=== PATIENT | male | born 1950 | race Caucasian/White ===

== ENCOUNTER 2018-02-04 02:47 | Outpatient (CLI) | payer BC, SELFPAY ==
[2018-02-04 07:28] LABS: HCT 39.4 % (40.0-50.0); HGB 13.4 g/dL (13.5-17.5); Mean Corpuscular Hemoglobin 30.9 pg (27.0-33.0); Mean Corpuscular Volume 90.8 fL (80-95); Mean Platelet Volume 10.1 fL (8.0-11.0); Platelet Count 220 x1000/uL (130-400); RBC 4.34 m/cumm (4.50-6.00); RBC Distribution Width 12.4 % (11.8-14.1); White Blood Cell Count 6.55 k/cumm (4.4-10.8)
[2018-02-04 07:50] LABS: Hemoglobin A1C 6.5 % (4.5-6.2)
[2018-02-04 08:20] LABS: ALT 39 U/L (12-78); AST 27 U/L (15-37); Albumin 3.6 g/dL (3.4-5.0); Alkaline Phosphatase 58 U/L (46-116); Anion Gap 7.7 mmol/L (3-11); BUN 21 mg/dL (7-18); Bilirubin, Total 0.8 mg/dL (0.2-1.0); CO2 27.3 mmol/L (21.0-32.0); CREATININE 1.01 mg/dL (0.70-1.30); Calcium 8.6 mg/dL (8.5-10.1); Chloride 104 mmol/L (98-107); Cholesterol 104 mg/dL (50-200); Glucose 111 mg/dL (70-100); HDL Cholesterol 46 mg/dL (40-60); LDL CHOLESTEROL 47 mg/dL (<100); Potassium 4.5 mmol/L (3.5-5.1); Sodium 139 mmol/L (136-145); Total Protein 6.4 g/dL (6.4-8.2); Triglyceride 109 mg/dL (30-150)
[2018-02-05 10:15] LABS: PSA, Screening 0.7 ng/ml (0-4.5)
[2018-02-06 13:36] LABS: TSH (W/Ref FT4) 3.72 uIU/mL (0.358-3.74)
== END 2018-02-04 03:07 ==
PROVIDERS: PCP Family Medicine; Visit Provider Family Medicine
DX: E11.9 Type 2 diabetes mellitus without complications (principal); I10 Essential (primary) hypertension; Z00.00 Encounter for general adult medical examination without abnormal findings; E03.9 Hypothyroidism, unspecified
CPT/HCPCS: 36415; 80053; 80061; 83721; 84153; 85027; 83036; 84443

== ENCOUNTER 2018-02-06 13:27 | Outpatient (REF) | payer BC, SELFPAY ==
[2018-02-06 15:31] LABS: COMMENT (LAB VIEW ONLY) 189.25 mg/dL
== END 2018-02-06 13:47 ==
LOC: NCHCN 13:27
PROVIDERS: PCP Family Medicine; Visit Provider Family Medicine
DX: E11.9 Type 2 diabetes mellitus without complications (principal)
CPT/HCPCS: 82043; 82570

== ENCOUNTER 2018-06-10 07:21 | Outpatient (CLI) | payer BC, SELFPAY ==
[2018-06-10 08:23] LABS: Abs Immature Grans 0.04 k/cumm (0.0-0.09); Absolute Basophil Count 0.08 k/cumm (0.0-0.2); Absolute Lymphocyte Count 2.19 k/cumm (1.2-3.4); Absolute Monocyte Count 0.55 k/cumm (0.11-0.7); Basophils % 1.2; Eosinophils % 4.5; HCT 38.5 % (40.0-50.0); HGB 12.4 g/dL (13.5-17.5); Immature Grans % 0.6; Lymphocytes % 32.9; Mean Corp. HGB Concentration 32.2 g/dL (32.0-36.0); Mean Corpuscular Hemoglobin 29.5 pg (27.0-33.0); Mean Corpuscular Volume 91.7 fL (80-95); Mean Platelet Volume 10.3 fL (8.0-11.0); Monocytes % 8.3; Neutrophils % 52.5; Platelet Count 260 x1000/uL (130-400); RBC Distribution Width 12.7 % (11.8-14.1); White Blood Cell Count 6.66 k/cumm (4.4-10.8)
[2018-06-10 08:28] LABS: Hemoglobin A1C 6.8 % (4.5-6.2)
[2018-06-10 09:09] LABS: ALT 29 U/L (12-78); AST 21 U/L (15-37); Albumin 3.5 g/dL (3.4-5.0); Alkaline Phosphatase 59 U/L (46-116); Anion Gap 10.3 mmol/L (3-11); BUN 24 mg/dL (7-18); Bilirubin, Total 0.8 mg/dL (0.2-1.0); CO2 26.7 mmol/L (21.0-32.0); CREATININE 1.16 mg/dL (0.70-1.30); Calcium 9.6 mg/dL (8.5-10.1); Chloride 104 mmol/L (98-107); Glucose 101 mg/dL (70-100); Potassium 4.3 mmol/L (3.5-5.1); Sodium 141 mmol/L (136-145); TSH (W/Ref FT4) 4.08 uIU/mL (0.358-3.74); Total Protein 6.6 g/dL (6.4-8.2)
[2018-06-10 09:26] LABS: FREE T4 1.08 ng/dL (0.76-1.46)
[2018-06-10 10:14] LABS: ESR 14 MM/HR (1-20)
[2018-06-10 14:15] LABS: C-Reactive Protein 0.17 mg/dL (0.0-0.3)
== END 2018-06-10 07:41 ==
PROVIDERS: PCP Family Medicine; Visit Provider Family Medicine
DX: M25.562 Pain in left knee (principal); M25.462 Effusion, left knee; Z96.652 Presence of left artificial knee joint; I10 Essential (primary) hypertension; E11.9 Type 2 diabetes mellitus without complications; E03.9 Hypothyroidism, unspecified
CPT/HCPCS: 36415; 80053; 85652; 83036; 84439; 84443; 85025; 86140

== ENCOUNTER 2018-06-25 13:25 | Outpatient (REF) | payer BC, SELFPAY ==
[2018-06-25 15:59] LABS: Iron 103 ug/dL (50-175); Total Iron Binding Capacity 315 ug/dL (250-450); Transferrin Sat 33 % (20-55)
[2018-06-25 16:28] LABS: Ferritin 331 ng/mL (8-388); Vitamin B12 573 pg/mL (193-986)
[2018-06-25 16:40] LABS: Folate > 20.0 ng/mL (8.6-20.0)
== END 2018-06-25 13:45 ==
LOC: NCHCN 13:25
PROVIDERS: PCP Family Medicine; Visit Provider Family Medicine
DX: D64.9 Anemia, unspecified (principal)
CPT/HCPCS: 82607; 82728; 82746; 83540; 83550

== ENCOUNTER 2019-02-10 17:30 | Outpatient (REF) | payer BC, SELFPAY ==
[2019-02-10 19:32] LABS: Abs Immature Grans 0.02 k/cumm (0.0-0.09); Absolute Basophil Count 0.03 k/cumm (0.0-0.2); Absolute Eosinophil Count 0.03 k/cumm (0.0-0.7); Absolute Lymphocyte Count 0.53 k/cumm (1.2-3.4); Absolute Monocyte Count 0.45 k/cumm (0.11-0.7); Absolute Neutrophil Count 3.68 k/cumm (1.2-6.7); Basophils % 0.6; Eosinophils % 0.6; HGB 13.3 g/dL (13.5-17.5); Immature Grans % 0.4; Lymphocytes % 11.2; Mean Corp. HGB Concentration 34.1 g/dL (32.0-36.0); Mean Corpuscular Hemoglobin 30.4 pg (27.0-33.0); Mean Platelet Volume 10.7 fL (8.0-11.0); Monocytes % 9.5; Neutrophils % 77.7; Platelet Count 199 x1000/uL (130-400); RBC 4.38 m/cumm (4.50-6.00); RBC Distribution Width 12.3 % (11.8-14.1); White Blood Cell Count 4.74 k/cumm (4.4-10.8)
[2019-02-10 19:34] LABS: Anion Gap 14.3 mmol/L (3-11); BUN 30 mg/dL (7-18); CO2 22.7 mmol/L (21.0-32.0); CREATININE 1.53 mg/dL (0.70-1.30); Calcium 8.6 mg/dL (8.5-10.1); Chloride 103 mmol/L (98-107); Estimated GFR 45.77 (mL/min/1.73m2); Glucose 190 mg/dL (70-100); Sodium 140 mmol/L (136-145)
[2019-02-10 19:43] LABS: Hemoglobin A1C 6.5 % (4.5-6.2)
== END 2019-02-10 17:50 ==
LOC: NCHCN 17:30
PROVIDERS: PCP Family Medicine; Visit Provider Family Medicine
DX: R50.9 Fever, unspecified (principal); I10 Essential (primary) hypertension; E78.5 Hyperlipidemia, unspecified; E11.9 Type 2 diabetes mellitus without complications
CPT/HCPCS: 80048; 83036; 85025

== ENCOUNTER 2019-02-11 01:27 | Outpatient (CLI) | payer BC, SELFPAY ==
--- NOTE | 2019-02-11 08:15 | DI.RAD_ITS ---
EXAM: XR CHEST 2V PA LATERAL INDICATION: FEVER, R50.9. COMPARISON: No exams were available for comparison TECHNIQUE: 2D digital imaging was performed. FINDINGS: Heart is not enlarged. Lungs are predominantly clear except for question of focal increased radioden sity in the lingula which could represent patchy areas of consolidation. No pleural effusion seen. Mediastinal contours within normal limits. IMPRESSION: Question lingular pneumonia. Follow-up chest films suggested following treatment to rule out underly ing process including neoplastic disease
== END 2019-02-11 01:47 ==
PROVIDERS: PCP Family Medicine; Visit Provider Family Medicine
DX: R50.9 Fever, unspecified (principal); J18.1 Lobar pneumonia, unspecified organism
CPT/HCPCS: 71046

== ENCOUNTER 2019-03-04 01:30 | Outpatient (CLI) | payer BC, SELFPAY ==
--- NOTE | 2019-03-04 15:02 | DI.CT_ITS ---
EXAM: CT LOWER EXTREMITY LT WO CLINICAL HISTORY: CHRONIC KNEE PAIN, LT, LT KNEE PAIN/EFFUSION S/P KNEE REPLACEMENT 04/19/16 TECHNIQUE: Images were performed from the distal femoral diaphysis through the proximal tibial and f ibular diaphyses. COMPARISON: Knee L from 06/05/2018 FINDINGS: A total knee prosthesis is noted which creates artifact particularly at the level of the femoral com ponent. A joint effusion is seen with marked synovial thickening. There are calcifications in the thi ckened synovium but no visible loose bodies. No abnormal bony lucencies are seen around the prosthesi s. There are 2 adjacent circumscribed bony densities seen beneath the proximal tibial fibular joint w hich shows some degenerative change and spurring. IMPRESSION: Joint effusion with marked synovial thickening. No abnormal periprostatic lucencies are seen.
== END 2019-03-04 01:50 ==
PROVIDERS: PCP Family Medicine; Visit Provider Orthopaedic Surgery Adult Reconstructive Orthopaedic Surgery
DX: M25.562 Pain in left knee (principal); M25.462 Effusion, left knee; Z96.652 Presence of left artificial knee joint
CPT/HCPCS: 73700

== ENCOUNTER 2019-03-12 04:12 | Outpatient (CLI) | payer BC, SELFPAY ==
--- NOTE | 2019-03-12 17:27 | DI.RAD_ITS ---
EXAM: XR CHEST 2V PA AND LATERAL INDICATION: ABNORMAL CXR, R91.8. COMPARISON: XR CHEST 2V PA AND LATERAL from 02/11/2019 TECHNIQUE: 2D digital imaging was performed. FINDINGS: There is a faint opacity seen in the left lower lung field laterally, which appears unchanged. No in filtrate is identified. Heart size is normal. The right lung appears clear. There are mild degener ative changes in the thoracic spine. IMPRESSION: Opacity of the left costophrenic angle may be pleural based. A CT is recommended for further evaluati on.
== END 2019-03-12 04:32 ==
PROVIDERS: PCP Family Medicine; Visit Provider Family Medicine
DX: R91.8 Other nonspecific abnormal finding of lung field (principal); J98.4 Other disorders of lung
CPT/HCPCS: 71046

== ENCOUNTER 2019-07-15 09:47 | Outpatient (CLI) | payer BC, SELFPAY ==
--- NOTE | 2019-07-15 10:04 | DI.RAD_ITS ---
EXAM: XR CHEST 2V PA LATERAL CLINICAL HISTORY: ABNL CXR 03/12/19, R91.8, F/U LINGULAR INFILTRATE TO CLEAR TECHNIQUE: 2D digital imaging was performed. COMPARISON: XR CHEST 2V PA LATERAL from 02/11/2019 XR CHEST 2V PA LATERAL from 03/12/2019 FINDINGS: MEDIASTINUM: Normal. HEART: Normal. PULMONARY VASCULATURE: Normal. LUNGS: Clear. PLEURAL SPACE: No pleural effusion or pneumothorax. BONE:Normal. OTHER FINDINGS:Normal. IMPRESSION: No evidence of lingular infiltrate.. DATA REPOSITORY: RADIATION DOSE DELIVERED:
== END 2019-07-15 10:07 ==
PROVIDERS: PCP Family Medicine; Visit Provider Family Medicine
DX: R91.8 Other nonspecific abnormal finding of lung field (principal)
CPT/HCPCS: 71046

== ENCOUNTER 2019-08-20 19:30 | Outpatient (REF) | payer BC, SELFPAY ==
[2019-08-23 17:14] LABS: COVID-19 RT-PCR Result Negative (Negative)
== END 2019-08-20 19:50 ==
LOC: NCHCN 19:30
PROVIDERS: PCP Family Medicine; Visit Provider Physician Assistant
DX: R09.81 Nasal congestion (principal); Z11.59 Encounter for screening for other viral diseases
CPT/HCPCS: U0003

== ENCOUNTER 2019-09-10 11:30 | Outpatient (CLI) | payer BC, SELFPAY ==
--- NOTE | 2019-09-10 | DI.CT_ITS ---
EXAM: CT LOWER EXTREMITY LT WO TECHNIQUE: Imaging Protocol: Axial computed tomography images with coronal and sagittal reformatted images were created and reviewed CONTRAST MATERIAL: Noncontrast CR Bilateral Standing Knees from 02/06/2018 CR Knee L from 06/05/2018 NM Bone Scan from 07/14/[address] LOWER EXTREMITY LT WO from 03/04/2019 FINDINGS: A total left knee prosthesis is again noted. There is artifact surrounding the prosthesis, particul fernando the femoral component. There is a smoothly marginated rounded lucency seen in the medial femora l condyle posteriorly, adjacent to the prosthesis. There is some cortical breakthrough. The cystic area measures 15 millimeters in diameter. It appears unchanged when compared with the previous CT. No new areas of lucency are seen. There is stable appearance of synovial thickening and joint effusion with some synovial calcification . Bony densities are again noted adjacent to the posterior proximal tibial fibular joint. IMPRESSION: Stable cystic area in the posterior aspect of the medial femoral condyle, just above the prosthesis. Stable joint effusion and synovial thickening. RADIATION DOSE DELIVERED: Total DLP DATA REPOSITORY: All CT scans at this facility are submitted to the National Radiology Data Registry (NRDR) Dose Index Registry (DIR) with the [employer] (ACR). RADIATION OPTIMIZATION: All CT scans at this facility use at least one of these dose optimization te chniques: automated exposure control; mA and/or kV adjustment per patient size (includes targeted exa ms where dose is matched to clinical indication); or iterative reconstruction.
== END 2019-09-10 11:50 ==
PROVIDERS: PCP Family Medicine; Visit Provider Orthopaedic Surgery Adult Reconstructive Orthopaedic Surgery
DX: Z96.652 Presence of left artificial knee joint (principal); M25.462 Effusion, left knee; M67.262 Synovial hypertrophy, not elsewhere classified, left lower leg
CPT/HCPCS: 73700

== ENCOUNTER 2020-02-03 21:23 | Outpatient (REF) | payer BC, SELFPAY ==
[2020-02-03 18:28] LABS: HCT 39.3 % (40.0-50.0); MCH 30.3 pg (27.0-33.0); MCHC 33.1 % (32.0-36.0); MCV 91.6 fL (80-95); MPV 10.9 fL (8.0-11.0); Platelet Count 272 10^3/uL (130-400); RBC 4.29 10^6/uL (4.36-5.78); RDW 12.2 % (11.8-14.1); RDW-SD 40.4 fL; WBC 8.83 10^3/uL (4.4-10.8)
[2020-02-03 19:12] LABS: Hemoglobin A1C 6.5 % (<5.7)
[2020-02-03 19:13] LABS: Anion Gap 10.6 mmol/L (3-11); BUN 39 mg/dL (7-18); CO2 23.4 mmol/L (21.0-32.0); CREATININE 1.57 mg/dL (0.70-1.30); Calcium 8.8 mg/dL (8.5-10.1); Calculated LDL 34 mg/dL (<100); Chloride 103 mmol/L (98-107); Cholesterol 121 mg/dL (<200); Estimated GFR 44.29 (mL/min/1.73m2); Glucose 126 mg/dL (74-106); HDL Cholesterol 40 mg/dL (40-60); Potassium 4.7 mmol/L (3.5-5.1); Sodium 137 mmol/L (136-145); Triglyceride 237 mg/dL (<150)
[2020-02-04 18:08] LABS: PSA, Screening 0.9 ng/mL (0.0-4.5)
== END 2020-02-03 21:43 ==
LOC: NCHCN 21:23
PROVIDERS: PCP Family Medicine; Visit Provider Family Medicine
DX: I10 Essential (primary) hypertension (principal); E11.9 Type 2 diabetes mellitus without complications; E78.5 Hyperlipidemia, unspecified; Z00.00 Encounter for general adult medical examination without abnormal findings; Z12.5 Encounter for screening for malignant neoplasm of prostate
CPT/HCPCS: 80048; 80061; 84153; 85027; 83036

== ENCOUNTER 2020-02-08 10:45 | Outpatient (REF) | payer BC, SELFPAY ==
[2020-02-08 18:31] LABS: Bilirubin Negative (Negative); Blood Negative (Negative); Clarity Clear (Clear); Glucose Negative (Negative); Ketones Trace mg/dL (Negative); Leukocyte Esterase Negative (Negative); Nitrite Negative (Negative); Specific Gravity 1.025 (1.005-1.025); Urobilinogen 0.2 EU/dL (Up TO 0.2); pH 5.5 (5-8)
[2020-02-08 19:04] LABS: COMMENT (LAB VIEW ONLY) 182.82 mg/dL
== END 2020-02-08 11:05 ==
LOC: NCHCN 10:45
PROVIDERS: PCP Family Medicine; Visit Provider Family Medicine
DX: E11.9 Type 2 diabetes mellitus without complications (principal); N18.30 Chronic kidney disease, stage 3 unspecified
CPT/HCPCS: 81003; 82043; 82570

== ENCOUNTER 2020-02-16 08:57 | Outpatient (CLI) | payer BC, SELFPAY ==
--- NOTE | 2020-02-16 | DI.US_ITS ---
EXAM: US RENAL CLINICAL HISTORY: KIDNEY DISEASE, CHRONIC STAGE III N18.3. TECHNIQUE: Reddy scale, color and spectral Doppler were used. COMPARISON: No exams were available for comparison FINDINGS: Renal size in cm: Right: 10.6. Left: 10.7. Echogenicity: Normal. Hydronephrosis: No. Cyst or mass: No. Nephrolithiasis: Echogenic foci seen in each kidney. These may represent nonobstructing stones. The largest measures 0.7 cm and is in the midpole of the left kidney. Other findings: Symmetric renal cortical thickness. Bladder:Normal. Ureteral jets: Right: Visualized and unremarkable. Left: Visualized and unremarkable. Prevoid vol:142 cc Postvoid vol:31 cc Prostate: Not visualized. Renal color flow: Symmetric and within normal limits. IMPRESSION: 1. Symmetric renal cortical thickness appears within normal limits. 2. Bilateral echogenic foci in the kidneys which may represent nonobstructing stones. DATA REPOSITORY:
== END 2020-02-16 09:17 ==
PROVIDERS: PCP Family Medicine; Visit Provider Family Medicine
DX: N18.30 Chronic kidney disease, stage 3 unspecified (principal)
CPT/HCPCS: 76770

== ENCOUNTER 2020-04-10 09:12 | Outpatient (REF) | payer BC, SELFPAY ==
[2020-04-10 19:33] LABS: Anion Gap 10.8 mmol/L (3-11); BUN 23 mg/dL (7-18); CO2 21.2 mmol/L (21.0-32.0); CREATININE 1.28 mg/dL (0.70-1.30); Calcium 8.9 mg/dL (8.5-10.1); Chloride 104 mmol/L (98-107); Estimated GFR 56.06 (mL/min/1.73m2); Glucose 148 mg/dL (74-106); Potassium 4.4 mmol/L (3.5-5.1); Sodium 136 mmol/L (136-145); TSH (W/Ref FT4) 3.74 uIU/mL (0.36-3.74)
[2020-04-10 20:53] LABS: Hemoglobin A1C 6.6 % (<5.7)
== END 2020-04-10 09:32 ==
LOC: NCHCN 09:12
PROVIDERS: PCP Family Medicine; Visit Provider Family Medicine
DX: E03.9 Hypothyroidism, unspecified (principal); E11.9 Type 2 diabetes mellitus without complications; N18.31 Chronic kidney disease, stage 3a
CPT/HCPCS: 80048; 83036; 84443

== ENCOUNTER 2020-05-04 09:47 | Outpatient (REF) | payer BC, SELFPAY ==
[2020-05-08 10:55] LABS: Testosterone, Free 12.8 ng/dL (3.47-13.0); Testosterone, Total 365 ng/dL (240-950)
== END 2020-05-04 10:07 ==
LOC: NCHCN 09:47
PROVIDERS: PCP Family Medicine; Visit Provider Physician Assistant
DX: R53.83 Other fatigue (principal)
CPT/HCPCS: 84402; 84403

== ENCOUNTER 2021-01-03 12:15 | Outpatient (REF) | payer MEDICARE, BC, SELFPAY ==
[2021-01-05 12:19] LABS: Lyme Ab w Rflx to Lyme Confirm Positive (Negative)
[2021-01-05 14:08] LABS: Lyme IgG Ab Positive (Negative); Lyme IgM Ab Positive (Negative)
[2021-01-05 21:39] LABS: Anaplasma phagocytophilum Negative (Negative); B. miyamotoi PCR Negative (Negative); Babesia divergens/MO-1 Negative (Negative); Babesia duncani Negative (Negative); Babesia microti Negative (Negative); Ehrlichia chaffeensis Negative (Negative); Ehrlichia ewingii/canis Negative (Negative); Ehrlichia muris eauclairensis Negative (Negative)
== END 2021-01-03 12:16 | disposition home or self-care (01) ==
LOC: LBN 12:15
PROVIDERS: PCP Family Medicine; Visit Provider Family Medicine
DX: R50.9 Fever, unspecified (principal); R53.83 Other fatigue
CPT/HCPCS: 86617; 87798; 86618

== ENCOUNTER 2021-08-24 12:53 | Outpatient (REF) | payer MEDICARE, BC, SELFPAY ==
[2021-08-24 14:32] LABS: HCT 43.3 % (40.0-50.0); HGB 14.1 g/dL (13.5-17.5); MCH 29.6 pg (27.0-33.0); MCHC 32.6 % (32.0-36.0); MCV 90.8 fL (80-95); MPV 10.7 fL (8.0-11.0); Platelet Count 268 10^3/uL (130-400); RBC 4.77 10^6/uL (4.36-5.78); RDW 12.3 % (11.8-14.1); WBC 7.37 10^3/uL (4.4-10.8)
[2021-08-24 14:51] LABS: ALT 34 U/L (16-63); AST 22 U/L (15-37); Alkaline Phosphatase 69 U/L (46-116); Anion Gap 10.1 mmol/L (3-11); BUN 19 mg/dL (7-18); Bilirubin, Total 1.1 mg/dL (0.2-1.0); CO2 24.9 mmol/L (21.0-32.0); CREATININE 1.1 mg/dL (0.70-1.30); Calcium 9.5 mg/dL (8.5-10.1); Chloride 102 mmol/L (98-107); Glucose 145 mg/dL (74-106); Potassium 4.6 mmol/L (3.5-5.1); Sodium 137 mmol/L (136-145)
[2021-08-24 15:03] LABS: Hemoglobin A1C 6.4 % (<5.7)
[2021-08-24 15:27] LABS: COMMENT (LAB VIEW ONLY) 99.78 mg/dL
[2021-08-27 09:28] LABS: PSA, Screening 0.7 ng/mL (<=4.5)
== END 2021-08-24 12:54 | disposition home or self-care (01) ==
LOC: NCHCN 12:53
PROVIDERS: PCP Family Medicine; Visit Provider Family Medicine
DX: E11.9 Type 2 diabetes mellitus without complications (principal); Z12.5 Encounter for screening for malignant neoplasm of prostate; N18.30 Chronic kidney disease, stage 3 unspecified; I10 Essential (primary) hypertension
CPT/HCPCS: 80053; 84153; 85027; 82043; 82570; 83036

== ENCOUNTER → 2021-10-04 01:13 | Outpatient (CLI) | payer MEDICARE, BC, SELFPAY ==
--- NOTE | 2021-10-04 08:00 | DI.US_ITS ---
Exam(s) US AAA SCREENING EXAM: US AAA SCREENING CLINICAL HISTORY: TOBACCO USE, QUIT, Z87.891,screening for aaa COMPARISON: US US RENAL from 02/16/2020 FINDINGS: There is no evidence of abdominal aortic aneurysm. The maximum measured external diameter of the abd ominal aorta is 2.3 cm and the abdominal aorta tapers normally. The partially visualized common ayana c arteries exhibit upper normal diameters. IMPRESSION: No evidence of abdominal aortic aneurysm. DATA REPOSITORY:
== END ==
PROVIDERS: PCP Family Medicine; Visit Provider Family Medicine
DX: Z87.891 Personal history of nicotine dependence (principal); Z13.6 Encounter for screening for cardiovascular disorders
CPT/HCPCS: 76706

== ENCOUNTER 2022-02-19 15:21 | Outpatient (REF) | payer MEDICARE, BC, SELFPAY ==
[2022-02-19 19:18] LABS: Hemoglobin A1C 6.3 % (<5.7)
[2022-02-19 19:27] LABS: Anion Gap 7.1 mmol/L (3-11); BUN 20 mg/dL (7-18); CO2 28.9 mmol/L (21.0-32.0); CREATININE 1.1 mg/dL (0.70-1.30); Calcium 9.3 mg/dL (8.5-10.1); Chloride 103 mmol/L (98-107); Estimated GFR 72.67 (mL/min/1.73m2); Glucose 108 mg/dL (74-106); Potassium 3.9 mmol/L (3.5-5.1); Sodium 139 mmol/L (136-145); TSH (W/Ref FT4) 2.35 uIU/mL (0.36-3.74)
[2022-02-19 20:43] LABS: COMMENT (LAB VIEW ONLY) 37.86 mg/dL; Microalb ug/mg Crea 15.1 ug/mg Cr
== END 2022-02-19 15:22 | disposition home or self-care (01) ==
LOC: NCHCN 15:21
PROVIDERS: PCP Family Medicine; Visit Provider Family Medicine
DX: E03.9 Hypothyroidism, unspecified (principal); E11.9 Type 2 diabetes mellitus without complications; N18.30 Chronic kidney disease, stage 3 unspecified
CPT/HCPCS: 80048; 82043; 82570; 83036; 84443

== ENCOUNTER 2022-03-22 15:58 | Outpatient (CLI) | payer MEDICARE, BC, SELFPAY ==
--- NOTE | 2022-03-22 | DI.RAD_ITS ---
Exam(s) XR CLAVICLE RT EXAM: XR CLAVICLE RT CLINICAL HISTORY: CLAVICLE PAIN--M89.8x8. TECHNIQUE: 2D digital imaging was performed. COMPARISON: CR XR SHOULDER RT COMPLETE 2+V from 03/22/2022 FINDINGS: Two views No evidence of clavicle fracture. No dislocation of the AC joint. Some degenerative irregularity on the superior surface of the acromion noted. Of a calcific density measuring 4 x 3 millimeters noted lateral to the greater tuberosity of the humerus indicative of calcific rotator cuff tendinitis. IMPRESSION: No clavicle fracture. Other findings as above. DATA REPOSITORY: RADIATION DOSE DELIVERED:
--- NOTE | 2022-03-22 | DI.RAD_ITS ---
Exam(s) XR SHOULDER RT COMPLETE 2+V EXAM: XR SHOULDER RT COMPLETE 2+V CLINICAL HISTORY: PAIN IN RIGHT SHOULDER--M25.511. TECHNIQUE: 2D digital imaging was performed. COMPARISON: No exams were available for comparison FINDINGS: Five views: No evidence of acute fracture or dislocation. 4 x 3 millimeter calcific densities noted adjacent to the greater tuberosity consistent with calcific rotator cuff tendinitis. There also advanced degener ative changes in the glenohumeral joint including joint space narrowing and obando osteophyte on the i nferior articular surface of the humeral head. Clavicle intact. No osseous lesions. 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 Calcific rotator cuff tendinitis. Wet read performed. DATA REPOSITORY: RADIATION DOSE DELIVERED:
== END 2022-03-22 16:18 ==
LOC: DI 15:59
PROVIDERS: PCP Family Medicine; Visit Provider Physician Assistant Medical
DX: M19.011 Primary osteoarthritis, right shoulder (principal); M75.31 Calcific tendinitis of right shoulder
CPT/HCPCS: 73000; 73030

== ENCOUNTER → 2022-04-03 11:02 | Outpatient (BNVA) | payer MEDICARE, BC, SELFPAY | PROVIDERS: PCP Family Medicine; Referring Provider Family Medicine; Visit Provider Student in an Organized Health Care Education/Training Program | DX: M19.011 Primary osteoarthritis, right shoulder (principal); M75.31 Calcific tendinitis of right shoulder | CPT/HCPCS: 20610; 99203; J1030 ==

== ENCOUNTER → 2022-04-22 13:32 | Outpatient (CLI) | payer MEDICARE, BC, SELFPAY ==
--- NOTE | 2022-04-22 | DI.CT_ITS ---
Exam(s) CT ABDOMEN PELVIS W EXAM: CT ABDOMEN PELVIS W CLINICAL HISTORY: LLQ ABD PAIN, R10.32, LUQ ABD PAIN, R10.12,S/P BLUNT FORCE TRAUMA 2 WKS AGO. TECHNIQUE: Imaging Protocol: Axial computed tomography images with coronal and sagittal reformatted images were created and reviewed CONTRAST MATERIAL: Intravenous: Omnipaque 350 Contrast volume:100 ml Oral: yes / COMPARISON: CT CT KNEE WO CONTRAST LEFT (GENERIC) from 07/22/2018 CR XR CLAVICLE RT from 03/22/2022 CR XR SHOULDER RT COMPLETE 2+V from 03/22/2022 FINDINGS: ABDOMEN: Lung Bases: Left basilar atelectasis. Liver: Normal density. No measurable mass. Gallbladder and biliary tract: No radiodense calculus or dilation. Pancreas: Normal density, no abnormal calcifications or inflammatory process. Spleen: Normal. Kidneys: Normal size, contour and axis. 2 millimeter stone at the left ureterovesical junction causes mild left hydronephrosis. No additional stones are seen. There is mild delay in the left nephrogra m. A small left renal cyst is present. Adrenal glands: No masses seen. Abdominal Aorta: Abdominal portion non-dilated. Mild atherosclerotic changes. PELVIS: Bladder: Bladder nearly empty and not well evaluated. Question of diffuse wall thickening..No focal mass. Bowel: Prominent diverticulosis sigmoid. No evidence of diverticulitis. Increased stool right-sided colon. No obstruction or bowel wall thickening. Appendix normal. Peritoneal cavity: No ascites, collection or mesenteric inflammatory response. Bones: Degenerative changes lumbar spine. Reproductive organs: Prostate mildly enlarged. Lymph nodes: Unremarkable. Soft tissues: Small bilateral fatty containing inguinal hernias. Impression: 2 millimeter stone at the left ureteral vesicle junction causing mild left hydronephrosis. Question of bladder wall thickening versus nondistention. RADIATION DOSE DELIVERED: 1,393.86mGy.cm Total DLP DATA REPOSITORY: All CT scans at this facility are submitted to the National Radiology Data Registry (NRDR) Dose Index Registry (DIR) with the [employer] (ACR). RADIATION OPTIMIZATION: All CT scans at this facility use at least one of these dose optimization te chniques: automated exposure control; mA and/or kV adjustment per patient size (includes targeted exa ms where dose is matched to clinical indication); or iterative reconstruction.
[2022-04-22] MEDS: Barium Sulfate 2% W/V-Berry Smoothie 450 ML BTL PO ×2 (13:07→13:08)
[2022-04-22] MEDS: Omnipaque 350 MG/ML 500 ML BTL-Imaging package IJ (13:08)
[2022-04-22] MEDS: Normal Saline - Diluent 50 ML VIAL IJ (13:08)
== END ==
PROVIDERS: PCP Family Medicine; Visit Provider Nurse Practitioner Family
DX: R10.32 Left lower quadrant pain (principal); R10.12 Left upper quadrant pain; J98.11 Atelectasis; N20.1 Calculus of ureter; N13.30 Unspecified hydronephrosis; N28.1 Cyst of kidney, acquired; N40.0 Benign prostatic hyperplasia without lower urinary tract symptoms; N32.89 Other specified disorders of bladder
CPT/HCPCS: 74177

== ENCOUNTER 2022-04-22 14:25 | Outpatient (REF) | payer MEDICARE, BC, SELFPAY ==
[2022-04-22 11:30] LABS: Abs Immature Grans 0.04 10^3/uL (0.0-0.06); Absolute Basophil Count 0.07 10^3/uL (0.0-0.2); Absolute Eosinophil Count 0.12 10^3/uL (0.0-0.7); Absolute Lymphocyte Count 1.67 10^3/uL (1.2-3.4); Absolute Monocyte Count 0.74 10^3/uL (0.1-0.8); Basophils % 0.8; Eosinophils % 1.3; HCT 39.6 % (40.0-50.0); HGB 13.3 g/dL (13.5-17.5); Immature Grans % 0.4; Lymphocytes % 18.1; MCHC 33.6 % (32.0-36.0); MCV 89 fL (80-95); MPV 10.2 fL (8.0-11.0); Neutrophils % 71.4; Platelet Count 228 10^3/uL (130-400); RBC 4.43 10^6/uL (4.36-5.78); RDW 12.4 % (11.8-14.1); RDW-SD 40.7 fL; WBC 9.24 10^3/uL (4.4-10.8)
[2022-04-22 11:55] LABS: ALT 32 U/L (16-63); AST 20 U/L (15-37); Albumin 3.9 g/dL (3.4-5.0); Alkaline Phosphatase 63 U/L (46-116); Anion Gap 9.8 mmol/L (3-11); BUN 27 mg/dL (7-18); Bilirubin, Total 1.4 mg/dL (0.2-1.0); CO2 25.2 mmol/L (21.0-32.0); CREATININE 1.6 mg/dL (0.70-1.30); Calcium 9.2 mg/dL (8.5-10.1); Chloride 101 mmol/L (98-107); Estimated GFR 46.35 (mL/min/1.73m2); Glucose 185 mg/dL (74-106); Potassium 4.2 mmol/L (3.5-5.1); Sodium 136 mmol/L (136-145)
== END 2022-04-22 14:26 | disposition home or self-care (01) ==
LOC: LBN 14:25
PROVIDERS: PCP Family Medicine; Visit Provider Nurse Practitioner Family
DX: R10.32 Left lower quadrant pain (principal); R10.12 Left upper quadrant pain
CPT/HCPCS: 80053; 85025

== ENCOUNTER 2022-12-06 15:53 | Outpatient (REF) | payer MEDICARE, BC, SELFPAY ==
[2022-12-06 16:39] LABS: HCT 41.5 % (40.0-50.0); HGB 13.8 g/dL (13.5-17.5); MCH 29.5 pg (27.0-33.0); MCHC 33.3 % (32.0-36.0); MCV 89 fL (80-95); MPV 10.7 fL (8.0-11.0); Platelet Count 247 10^3/uL (130-400); RBC 4.68 10^6/uL (4.36-5.78); RDW 12.7 % (11.8-14.1); RDW-SD 41.3 fL; WBC 9.14 10^3/uL (4.4-10.8)
[2022-12-06 17:09] LABS: Hemoglobin A1C 6.6 % (<5.7)
[2022-12-06 17:23] LABS: ALT 28 U/L (16-63); AST 19 U/L (15-37); Albumin 4.1 g/dL (3.4-5.0); Alkaline Phosphatase 66 U/L (46-116); BUN 22 mg/dL (7-18); Bilirubin, Total 0.8 mg/dL (0.2-1.0); Calcium 9.5 mg/dL (8.5-10.1); Calculated LDL 9 mg/dL (<100); Chloride 103 mmol/L (98-107); Cholesterol 74 mg/dL (<200); Estimated GFR 80.97 (mL/min/1.73m2); Glucose 112 mg/dL (74-106); HDL Cholesterol 40 mg/dL (40-60); Potassium 4.6 mmol/L (3.5-5.1); Sodium 140 mmol/L (136-145); Total Protein 7.1 g/dL (6.4-8.2); Triglyceride 127 mg/dL (<150)
[2022-12-09 09:42] LABS: PSA, Screening 0.6 ng/mL (<=6.5)
== END 2022-12-06 15:54 | disposition home or self-care (01) ==
LOC: NCHCN 15:53
PROVIDERS: PCP Family Medicine; Visit Provider Family Medicine
DX: E78.5 Hyperlipidemia, unspecified (principal); E11.9 Type 2 diabetes mellitus without complications; E03.9 Hypothyroidism, unspecified; Z12.5 Encounter for screening for malignant neoplasm of prostate; Z79.899 Other long term (current) drug therapy; N40.0 Benign prostatic hyperplasia without lower urinary tract symptoms
CPT/HCPCS: 80053; 80061; 84153; 85027; 83036; 84443

== ENCOUNTER 2023-07-11 12:00 | Outpatient (REF) | payer MEDICARE, BC, SELFPAY ==
[2023-07-11 16:02] LABS: Hemoglobin A1C 6.2 % (<5.7)
[2023-07-11 16:31] LABS: COMMENT (LAB VIEW ONLY) 107.91 mg/dL; Microalb ug/mg Crea 7.8 ug/mg Cr
== END 2023-07-11 12:01 | disposition home or self-care (01) ==
LOC: NCHCN 12:00
PROVIDERS: PCP Family Medicine; Referring Provider Family Medicine; Visit Provider Family Medicine
DX: E11.9 Type 2 diabetes mellitus without complications (principal)
CPT/HCPCS: 82043; 82570; 83036

== ENCOUNTER 2023-11-17 19:12 | Outpatient (REF) | payer MEDICARE, BC, SELFPAY ==
[2023-11-17 19:33] LABS: HCT 38.8 % (40.0-50.0); HGB 12.9 g/dL (13.5-17.5); MCH 30.1 pg (27.0-33.0); MCHC 33.2 % (32.0-36.0); MCV 90 fL (80-95); MPV 10.9 fL (8.0-11.0); Platelet Count 225 10^3/uL (130-400); RBC 4.29 10^6/uL (4.36-5.78); RDW 13.1 % (11.8-14.1); RDW-SD 43.2 fL; WBC 7.86 10^3/uL (4.4-10.8)
[2023-11-17 20:15] LABS: ALT 40 U/L (16-63); AST 22 U/L (15-37); Albumin 4.1 g/dL (3.4-5.0); Alkaline Phosphatase 65 U/L (46-116); Anion Gap 12.8 mmol/L (3-11); BUN 28 mg/dL (7-18); CO2 25.2 mmol/L (21.0-32.0); CREATININE 1.1 mg/dL (0.70-1.30); Calcium 9.2 mg/dL (8.5-10.1); Chloride 104 mmol/L (98-107); Estimated GFR 71.77 (mL/min/1.73m2); Glucose 146 mg/dL (74-106); Potassium 4.6 mmol/L (3.5-5.1); Sodium 142 mmol/L (136-145); TSH (W/Ref FT4) 1.62 uIU/mL (0.36-3.74); Total Protein 6.8 g/dL (6.4-8.2)
[2023-11-18 19:39] LABS: PSA, Screening 0.9 ng/mL (<=6.5)
== END 2023-11-17 19:13 | disposition home or self-care (01) ==
LOC: NCHCN 19:12
PROVIDERS: PCP Family Medicine; Visit Provider Family Medicine
DX: R53.83 Other fatigue (principal); Z12.5 Encounter for screening for malignant neoplasm of prostate
CPT/HCPCS: 80053; 84153; 85027; 84443

== ENCOUNTER 2023-11-20 18:24 | Outpatient (REF) | payer MEDICARE, BC, SELFPAY ==
[2023-11-20 19:14] LABS: Iron 68 ug/dL (65-175); Total Iron Binding Capacity 306 ug/dL (250-450); Transferrin Sat 22 % (20-55)
[2023-11-20 19:39] LABS: Ferritin 152 ng/mL (26-388); Folate 9.8 ng/mL (8.6-20.0); Vitamin B12 301 pg/mL (193-986)
== END 2023-11-20 18:25 | disposition home or self-care (01) ==
LOC: NCHCN 18:24
PROVIDERS: PCP Family Medicine; Visit Provider Family Medicine
DX: D64.9 Anemia, unspecified (principal)
CPT/HCPCS: 82607; 82728; 82746; 83540; 83550

== ENCOUNTER 2023-12-22 10:43 | Outpatient (CLI) | payer MEDICARE, BC, SELFPAY ==
[2023-12-22 16:31] LABS: HGB 12.5 g/dL (13.5-17.5); MCH 30.1 pg (27.0-33.0); MCHC 32.9 % (32.0-36.0); MCV 92 fL (80-95); MPV 9.9 fL (8.0-11.0); Platelet Count 242 10^3/uL (130-400); RBC 4.15 10^6/uL (4.36-5.78); RDW-SD 43.5 fL; WBC 6.93 10^3/uL (4.4-10.8)
[2023-12-22 18:01] LABS: Iron 56 ug/dL (65-175); Total Iron Binding Capacity 272 ug/dL (250-450); Transferrin Sat 21 % (20-55)
[2023-12-22 18:07] LABS: Ferritin 144 ng/mL (26-388)
== END 2023-12-22 10:44 | disposition home or self-care (01) ==
LOC: LBO 01-01 10:46
PROVIDERS: PCP Family Medicine; Visit Provider Family Medicine
DX: D64.9 Anemia, unspecified (principal)
CPT/HCPCS: 36415; 85027; 82728; 83540; 83550

== ENCOUNTER → 2023-12-30 08:32 | Outpatient (BNVA) | payer MEDICARE, BC, SELFPAY | PROVIDERS: PCP Family Medicine; Referring Provider Family Medicine; Visit Provider Surgery | DX: Z12.11 Encounter for screening for malignant neoplasm of colon (principal); Z86.010 Personal history of colon polyps ==

== ENCOUNTER 2024-01-19 01:08 | Outpatient (CLI) | payer MEDICARE, BC, SELFPAY ==
--- NOTE | 2024-01-19 | DI.NM_ITS ---
APPROVED REPORT Exam: Exercise Treadmill Patient Location: Out-Patient Room/Bed: Stress Nurse: Corrine Michaels RN; Nat Le RN Ordering Provider:SHABBIR CHANDLERUS, Contact Number: [phone] BMI: 27.71 Baseline Rhythm: Sinus Bradycardia Indications: chest discomfort Medical History Medical History: lyme disease, anxiety, obesity, HLD, HTN, DM2, chronic low back pain, subclinical hy pothyroid Cardiac Medications: amlodipine, atorvastatin, iron, magnesium, metformin, semaglutide, viagra, tadal afil Allergies: NKA Cardiac Risk Factors: diabetes, HTN, HLD, former smoker Previous Cardiac Procedures: none Pretest Chest Pain Characteristics: No chest pain Exercise History: Physically active Physical Disabilities: none Lung Sounds: Clear to auscultation Heart Sounds: Regular Stress Test Details Test: Exercise stress testing was performed using a Deric protocol. Nuclear Acquisition: Rest Tc-99m/Stress Tc-99m 1 day Rest Isotope: Tc-99m Sestamibi. Dose: 10.2 Date: 01/19/2024 Injection Time: 1050 Stress Isotope: Tc-99m Sestamibi. Dose: 31.5 Date: 01/19/2024 Injection Time: 1250 HR Resting HR Supine: 53 bpm Max Heart Rate (APMHR): 149.634405 bpm Resting HR Standin bpm Target HR (85% APMHR): 126.545830 bpm Max HR Achieved: 130 bpm % of APMHR: 87.25 Recovery HR: 67 bpm HR response to stress: Normal HR response to stress BP Resting BP Supine: 130/66 mmHg Resting BP Standin/58 mmHg Max BP: 192/40 mmHg Recovery BP: 128/66 mmHg BP response to stress: Normal blood pressure response to stress. ECG Resting ECG: Sinus Bradycardia Ectopy: none Stress ECG: Sinus Tachycardia ST Change: No significant ST segment changes noted Arrhythmia: rare PAC Recovery ECG: Sinus Rhythm Recovery ST Change: No significant ST segment changes noted Recovery Arrhythmia: none Clinical Reason for Termination: Target HR Achieved Stress Symptoms: none Exercise duration: 08 min38 sec Highest Stage Reached: Stage 3: 3.4 mph at 14% grade. Exercise capacity: 10.16 METs Angina Score: None Vogel Treadmill Score: 8.3 Rate Pressure Product: 79509 Stress ECG Conclusion 1. Resting electrocardiogram was normal 2. Patient exercised on the Deric protocol completed workload of 10 METS 3. Normal heart rate and blood pressure response to exercise. Patient achieved 87% of predicted hear t rate for age 4. There was no electrocardiographic evidence of myocardial ischemia 5. There were no significant dysrhythmias 6. See MPI report Vogel Treadmill Score is 8.3 which is Low risk. Stress Test Summary STAGE Time (mins) Speed (mph) Grade (%) HR BP SpO2 SYMPTOMS METS Supine 53 130/66 98 Standing 52 108/58 1 3 1.7 10 90 136/72 98 4.5 2 6 2.5 12 115 172/58 98 7 3 9 3.4 14 129 10 1 min recovery 92 192/40 98 3 min recovery 75 144/62 6 min recovery 67 128/66 98 MPI Conclusion Myocardial perfusion is normal. There is no ischemia or evidence of prior infarction Ejection fraction is 56% with normal wall motion Radiologist Interpretation Radiologist agrees with Streetcar Repairer Helper's Interpretation. Radiologist Interpretation by: Sukhjinder Beckham MD Interpretation Date/Time: 01/20/2024 08:21:23
== END 2024-01-19 01:28 ==
LOC: DI 01:08
PROVIDERS: PCP Family Medicine; Visit Provider Family Medicine
DX: R07.89 Other chest pain (principal)
CPT/HCPCS: 78452; 93016; 93018; 93017

== ENCOUNTER 2024-01-26 10:37 | Day surgery (SDC) | payer MEDICARE, BC, SELFPAY ==
--- NOTE | 2024-01-25 19:17 | PDOC.DSDIS_ITS ---
Date of service: 01/26/24 Time of Service: 13:04 Discharge Plan Disposition Patient Disposition: Home Condition: Good Discharge Details Reason For Visit: screening colonoscopy and EGD Attending Provider: Max Mae Primary Care Provider: Mirna Leavitt Home Meds and New Rx's Prescriptions: Continued lisinopril 40 mg tablet 40 mg PO DAILY metformin 500 mg tablet,ER rodrigo.retention 24 hr 500 mg PO HS atorvastatin 40 mg tablet 40 mg PO HS sildenafil [Viagra] 100 mg tablet 100 mg PO DAILY PRN Rx Instructions: administer 30 minutes to 4 hours before activity tadalafil 20 mg tablet 20 mg PO DAILY PRN Rx Instructions: administer approximately 30min before sexual activity; do not use more than 1 dose per 24hrs amlodipine 10 mg tablet 10 mg PO HS triamcinolone acetonide 0.1 % cream 1 applic topical TID PRN magnesium 200 mg tablet 200 mg PO DAILY PRN ferrous sulfate [Feosol] 325 mg (65 mg iron) tablet 325 mg PO Q OTHER DAY Ozempic 1 mg/dose (4 mg/3 mL) pen injector 2 mg subcut QWEEK Discontinued polyethylene glycol 3350 17 gram/dose powder 238 g PO ONCE Qty: 238 0RF Rx Instructions: take per colonoscopy instructions bisacodyl [Dulcolax (bisacodyl)] 5 mg tablet,delayed release (DR/EC) 5 mg PO ONCE Qty: 4 0RF Rx Instructions: take per colonoscopy instructions Discharge Instructions Instructions: Colon polyps, Diverticulosis Additional Instructions: Pedro, everything went very smoothly during the procedure today, and I hope you are comfortable. With regards to your EGD, or upper endoscopy, everything looks pretty normal. There is just a little bit of irregularity at the connection between your esophagus and your stomach, which can occur in patients with longstanding reflux. I did some biopsies here to rule out something called Lord's esophagus. If the biopsies support the diagnosis of Lord's, then I would recommend treatment with a proton pump inhibitor such as Nexium or Protonix. Otherwise, I do not see anything to worry about. I also did some biopsies in your stomach to rule out Helicobacter pylori, which is an infection that occurs in some patients stomach's. A lot of times are no obvious signs of it, but it can result in an iron deficiency anemia. With regards to the colonoscopy, you have some internal hemorrhoids, diverticulosis, and several polyps. Diverticula occur when the muscular part of the colon wall weakens a little bit as we get older. This causes little pockets to form. The individual pockets are called diverticula, and the condition of having them is known as diverticulosis. These can become symptomatic, and that is typically experienced as pain that usually on the left side of the abdomen. During those flares we referred to it as diverticulitis. Often times this is treated with antibiotics. Hopefully, years never bother you. In total, I removed 10 polyps. However many of these are extremely small, and it may bottom turning lathe turner that some of them are not real polyps. None of these worry me, but I will send them all off for testing, since polyps, and different varieties. The type of polyp will determine the timing of your next colonoscopy. The results of the biopsies and the polyp report will take a week or 2 for me to get back, but once I have them, the office will be in touch with recommendations for your next colonoscopy. If you have any questions in the meantime, please do not hesitate to call. 1. If tolerated, consume a soft, low fiber diet for 1-2 days. 2[address] Do not drive, drink alcohol, operate machinery, make critical decisions, or do activities that require coordination or balance for 24 hours. 3. Because air was put into your colon during the procedure, expelling air from your rectum (passing gas or farting) is normal. 4. You may not have a bowel movement for 1-3 days because of the colonoscopy prep. This is normal. 5. You may experience a sore throat for 24 to 48 hours. You may use throat lozenges or gargle with warm salt water to relieve the discomfort. 6. Because air was put into your stomach during the procedure, you may experience some belching. 7. Go directly to the emergency room if you notice any of the following: Develop chills (warm to touch), or if you have a thermometer and your temperature is above 101 Difficulty breathing or difficultly swallowing Persistent vomiting Severe abdominal pain, other than gas cramps Severe chest pain Black, tarry stools Any bleeding ? exceeding one tablespoon 8. Call your physician if the site where your intravenous was started becomes red, swollen, painful, and warm to touch. 9. Your physician has reviewed your pre-procedure medications. Please continue to take those medications as previously ordered. You will be given specific information/education regarding any changes to your medications before leaving. Activity:: Activity as Tolerated Diet:: As Tolerated Discharge Orders Discharge Orders: Discharge Order (Routine); Ordered 01/25/24 Ordered By: Max Mae DS: Diagnosis Discharge Diagnosis (1) Anemia: Status: Chronic Asessment and Plan: Follow-up on biopsy and polypectomy results
--- NOTE | 2024-01-25 19:18 | W.PM.ENDDOP ---
Date of service: 01/26/24 Time of Service: 13:10 Endoscopy Report DATE OF PROCEDURE: 01/26/24 PRE-OP DIAGNOSIS: screening colonoscopy and EGD POST-OP DIAGNOSIS: other (Normal-appearing EGD, with very mild irregularity of the GE junction at 40 cm from the incisors. Internal hemorrhoids, diverticulosis, and colon polyps) PROCEDURE: EGD and colonoscopy SURGEON: Max Mae ANESTHESIA TYPE: General:No Airway ESTIMATED BLOOD LOSS: 15 PATHOLOGY: other (Random biopsies of the gastric antrum and body as well as biopsies of the GE junction. Rectal polyps x 2, cecal polyps x 3, ascending colon polyp, polyp at 65 cm, polyp at 45 cm, polyps at 40 cm x 2) COMPLICATIONS: None DISPOSITION: same day INDICATIONS: Pedro is a 73 year old man who is due for his next screening colonoscopy but he also has and iron deficiency anemia of uncertain origin PREP: Miralax/Dulcolax PROCEDURE START TIME: 12:12 PROCEDURE END TIME: 12:50 COLONOSCOPY RETRACTION TIME: 19 FINDINGS: Mild irregularity of the GE junction at 40 cm from the incisors. Internal hemorrhoids, sigmoid diverticulosis, rectal polyps x 2, cecal polyps x 3, ascending colon polyp, polyp at 65 cm, polyp at 45 cm, polyps at 40 cm x 2 PROCEDURE DESCRIPTION: After the initiation of anesthesia, and with the assistance of a bite block, I advanced a standard gastroscope through the mouth past the hypopharynx and into the esophagus.? Under the direct vision of the scope, I advanced down the esophagus towards the stomach.? The upper, mid, and lower esophagus were all normal-appearing. There was very mild irregularity of the GE junction at 40 centimeters from the incisors. Narrowband imaging was used to assist with the analysis. It did not appear consistent with Lord's esophagus. I advanced down into the stomach and perform retroflexion. I saw no evidence of any hiatal hernias. The stomach was insufflated into the rugae were obliterated. The stomach mucosa was all normal and healthy appearing. There was no ulceration or irritation anywhere. I advanced down through the pylorus into the duodenum and as far as the second portion. All of this appeared normal. I brought the camera back up into the stomach and perform some random cold forceps biopsies of the gastric antrum and body to rule out Helicobacter pylori as a source of his iron deficiency anemia. There was minimal bleeding from the biopsy sites. I brought the camera back up to the GE junction and biopsied this as well. I then emptied the stomach, and brought the camera out along the length of the esophagus. No other abnormalities were appreciated. We then placed Pedro in the left lateral decubitus position. Great care was taken to pad and support him appropriately. I began by performing an external anorectal exam.? Perineum and skin were normal, as was the anal verge.? There was no evidence of external hemorrhoids.? Next, I performed a digital rectal exam.? I did not appreciate any abnormal findings.? Next, I advanced a colonoscope into the rectal vault.? I performed retroflexion.? There are internal hemorrhoids.? Using insufflation, I then advanced the colonoscope beyond the rectal folds and into the sigmoid colon before advancing towards the cecum.? There was some sigmoid diverticulosis.? The scope was noted to be in the cecum by identification of the ileocecal valve and appendiceal orifice.? There were 3 small polyps in the cecum. All were well less than 0.25 cm. All were flat, and I removed all of these with cold forceps. There were minimal bleeding from the polypectomy sites. I found another polyp in the ascending colon. This was also about 0.25 cm. This was removed with cold forceps. I also found polyps at 65, and 45 centimeters from the anal verge. These were also quite small and flat. Similar to the others, these were removed with cold forceps without any issue. Two more polyps were found at 40 cm from the anal verge. These were a little larger, but less than 0.5 cm. These were a little more pedunculated, and I removed these with cold forceps as well. I continued withdrawing the colonoscope using repeated irrigation as necessary for full evaluation of the colonic mucosa. ?Once the scope was withdrawn to the level of the rectum, great care was taken to examine portions of the rectal folds.? 2 more polyps were found in the rectum. These were also 0.25 cm and flat. I removed these in a fashion similar to all the others using cold forceps without issue. Finally, the scope was withdrawn and the patient was brought to the same-day surgery recovery unit as the anesthetic wore off. ?The findings and instructions were shared with the patient prior to discharge. The [place] bowel prep score from right to left was 3, 3, 3
[2024-01-26 10:49] VITALS: BP 127/62; PULSE 54; RESP 16; TEMP 36.1; O2SAT 98
[2024-01-26] MEDS: Lactated Ringers 1,000 ML 80 ML IV (11:10)
--- NOTE | 2024-01-26 11:32 | W.ANESPRE ---
General Info Date of Service Date Performed: 01/26/24 Height: 5 ft 7 in Weight: 78.4 kg Body Mass Index (BMI): 27.1 Surgical Procedure: Operation Date: 01/26/24 12:05 Proposed Procedure Side Surgeon p Colonoscopy/Gastroscopy Max Mae MD Meds Allergies and Home Medications Allergies Allergy/AdvReac Type Severity Reaction Status Date / Time No Known Drug Allergies Allergy none Verified 01/26/24 11:00 seasonal allergies Allergy Unknown Wheezing Uncoded 01/26/24 11:00 Home Medication ?Medication ?Instructions ?Recorded amlodipine 10 mg tablet 10 mg PO HS 04/02/22 atorvastatin 40 mg tablet 40 mg PO HS 04/02/22 lisinopril 40 mg tablet 40 mg PO DAILY 04/02/22 metformin 500 mg 24 hr 500 mg PO HS 04/02/22 tablet,extended release (gastric retention) sildenafil 100 mg tablet (Viagra) 100 mg PO DAILY PRN 04/02/22 tadalafil 20 mg tablet 20 mg PO DAILY PRN 04/02/22 triamcinolone acetonide 0.1 % 1 applic topical TID PRN 04/02/22 topical cream magnesium 200 mg tablet 200 mg PO DAILY PRN 04/03/22 semaglutide 1 mg/dose (4 mg/3 mL) 2 mg subcut QWEEK 12/16/23 subcutaneous pen injector (Ozempic) ferrous sulfate 325 mg (65 mg 325 mg PO Q OTHER DAY 12/30/23 iron) tablet (Feosol) Current Visit Medications: Current Medications Generic Name Dose Route Start Last Admin Trade Name Freq PRN Reason Stop Dose Admin Hyoscyamine Sulfate 0.125 mg 01/25/24 19:20 Hyoscyamine 0.125 Mg Sl/Oral/Chew SL 02/24/24 19:19 DIRECTED PRN Ringer's Solution 1,000 mls @ 80 mls/hr 01/26/24 06:00 01/26/24 11:10 IV 01/26/24 23:59 80 mls/hr INFUSION MICHAEL Administration IV Miscellaneous Supplies 1 each 01/26/24 06:00 Iv Access IV 01/26/24 23:59 DIRECTED MICHAEL Ondansetron HCl 4 mg 01/25/24 19:20 Ondansetron 4 Mg/2 Ml Vial IVP 02/24/24 19:19 Q4H PRN PRN Nausea / Vomiting Sodium Chloride 0 ml 01/26/24 06:00 Normal Saline Flush 10 Ml Syr IV 01/26/24 23:59 PRN PRN Sodium Chloride 0 ml 01/26/24 06:00 Normal Saline 10 Ml Vial IJ 01/26/24 23:59 DIRECTED PRN Sterile Water 0 ml 01/26/24 06:00 Water,Injection,Sterile 10 Ml Vial IJ 01/26/24 23:59 DIRECTED PRN PFSH Active Problems Active Problems: Problem Status Onset Code Anemia Chronic D64.9 Primary osteoarthritis, right shoulder Acute M19.011 Chronic low back pain Chronic M54.50, G89.29 OA (osteoarthritis) of knee Acute M17.9 Anxiety disorder Acute F41.9 Subclinical hypothyroidism Acute E03.8 Obesity Chronic E66.9 Hyperlipidemia Acute E78.5 Hypertension Chronic I10 Obstructive sleep apnea Chronic G47.33 Diabetes mellitus, type II Acute E11.9 Pain in right shoulder Acute M25.511 Calcific tendinitis of right shoulder Acute M75.31 Medical History Medical History (Updated 01/26/24 @ 11:01 by Noemi Veliz RN) Snoring (05/06/13) Tobacco use Hx of Lyme disease FALL 2020 Hx of herpes genitalis Allergic rhinitis Hx of adenomatous polyp of colon Osteoarthritis of shoulders, bilateral Surgical History Surgical History (Updated 01/26/24 @ 11:01 by Noemi Veliz RN) History of total knee arthroplasty left History of colonoscopy with polypectomy (~08/12/18) Tobacco Smoking/Tobacco Use Status: Former Tobacco Use Alcohol Alcohol Intake: never Substance Use Substance use: Never Substance use type: does not use Vital Signs and Lab Results Vital Signs Most Recent Vital Signs in EMR: Most Recent Vital Signs Temp Pulse Resp BP Pulse Ox 36.1 C L 54 L 16 127/62 98 01/26/24 10:49 01/26/24 10:49 01/26/24 10:49 01/26/24 10:49 01/26/24 10:49 Point of Care Results Point of Care Results: Finger Stick Blood Glucose 122 01/26/24 10:45 Lab Results Blood Type / Crossmatch: No Data to Display Complete Blood Count: No Data to Display Complete Metabolic Panel: No Data to Display Liver Function Panel: No Data to Display Coagulation Panel: No Data to Display Cardiac Panel: No Data to Display Arterial Blood Gas: No Data to Display Venous Blood Gas: No Data to Display Pancreas Panel: No Data to Display Thyroid Panel: No Data to Display Infectious Disease: No Data to Display Blood Cultures: No Data to Display Toxicology Panel: No Data to Display Imaging and Studies Imaging and Studies Study information below may be from another EMR and interpreted by another provider. Please see original notes in EMR for more complete details. Stress Test Summary: 01/2024: Stress ECG Conclusion 1. Resting electrocardiogram was normal 2. Patient exercised on the Deric protocol completed workload of 10 METS 3. Normal heart rate and blood pressure response to exercise. Patient achieved 87% of predicted heart rate for age 4. There was no electrocardiographic evidence of myocardial ischemia 5. There were no significant dysrhythmias 6. See MPI report Vogel Treadmill Score is 8.3 which is Low risk. Anesthesia Assessment and Plan Anesthesia History Personal History: No History of Anesthesia Complications Family History: No Family History of Anesthesia Complications Exercise Tolerance Exercise Tolerance: Metabolic Equivalents>4 Pertinent Negatives Pertinent Negatives: No Symptoms of GERD Cardiac & Pulmonary Exam Cardiac Exam: Normal S1/S2 Heart Sounds Pulmonary Exam: Clear Bilateral Breath Sounds Implantable Cardiac Device Does patient have a Pacemaker or an ICD?: No Airway Exam Known Difficult Airway: No Mallampati Class: 2 Mouth Opening: Normal (> 3cm) Thyromental Distance: Less than 3 cm Neck Range of Motion: Full ROM Neck Circumference: Normal Teeth Condition: Normal Dentition ASA Classification ASA Score: ASA 2 Emergency Case?: No NPO Status NPO Status: NPO Clears >2 hours, Solids >8 hours Anesthesia Plan Resuscitation Status: Full Code Anesthesia Technique: Epidural Anesthesia Airway Planned: Natural Airway Monitors Used: Standard Monitors
[2024-01-26 11:36] VITALS: BMI 27.1
--- NOTE | 2024-01-26 12:15 | BOWEL_PTH ---
PATIENT: Pedro Huynh LOC: [facility] U#:[id number] AGE/SX: 73/M ROOM: RE01/26/[address]: Max Mae MD : 1950 BED: DIS: 01/26/2024 SPEC #: [id number] RECD: 01/26/24 17:20 STATUS: [facility] #: [id number] ARTUR: 01/26/24 12:[address]: Max Mae DEPT: Surgical Specimen RECD BY: Raven Ojeda ENTERED: 01/26/24 17:26 SP TYPE: Bowel OTHR DR: Mirna Leavitt Tissues: 1 - STOMACH BIOPSY 2 - STOMACH BIOPSY 3 - ESOPHAGUS BIOPSY 4 - BIOPSY BOWEL 5 - BIOPSY BOWEL 6 - BIOPSY BOWEL 7 - BIOPSY BOWEL 8 - BIOPSY BOWEL 9 - BIOPSY BOWEL Procedures: GROSS AND MICRO LEVEL 4 Comments: [id number]
[2024-01-26 13:02] VITALS: BP 107/62; PULSE 54; RESP 16; TEMP 36.5; O2SAT 98
--- NOTE | 2024-01-26 13:04 | W.ANESPOSTOP ---
Postoperative Evaluation Date, Time and Location Date Performed: 01/26/24 Time Performed: 13:04 Patient Location: Day Surgery Unit Vital Signs Most Recent Imported Vital Signs: Most Recent Vital Signs Temp Pulse Resp BP Pulse Ox 36.5 C 54 L 16 107/62 98 01/26/24 13:02 01/26/24 13:02 01/26/24 13:02 01/26/24 13:02 01/26/24 13:02 Pain Score Most Recent Pain Score: Most Recent Pain Score Pain Level 0 01/26/24 13:02 Assessment Mental Status: Awake (Alert & Oriented to Patient Baseline) Airway and Respiratory Function: Patent airway with normal (patient baseline) respiratory exam Cardiovascular Function: Hemodynamically Stable Hydration Status: Adequately Hydrated Nausea & Vomiting: No Nausea or Vomiting Pain: Pt. Denies Any Pain Peripheral Nerve Block: Patient did not receive a nerve block Teaching Patient Teaching: Discussed Safe Use of Pain Medication Given Recent Anesthesia
[2024-01-26 13:33] VITALS: BP 114/67; PULSE 50; RESP 16; TEMP 36.4; O2SAT 98
== END 2024-01-26 13:50 | disposition home or self-care (01) ==
LOC: SUR 10:37
PROVIDERS: PCP Family Medicine; Visit Provider Surgery
PROC: (CPT 45380; principal; 2024-01-26 12:00)
DX: D64.9 Anemia, unspecified (principal); Z12.11 Encounter for screening for malignant neoplasm of colon; K64.8 Other hemorrhoids; K57.30 Diverticulosis of large intestine without perforation or abscess without bleeding; D12.0 Benign neoplasm of cecum; D12.2 Benign neoplasm of ascending colon; D12.4 Benign neoplasm of descending colon; K63.89 Other specified diseases of intestine; K22.89 Other specified disease of esophagus
CPT/HCPCS: 45380; 43239; 88305; J2704

== ENCOUNTER 2024-03-17 21:42 | Outpatient (REF) | payer MEDICARE, BC, SELFPAY ==
[2024-03-19 13:06] LABS: HSV 1 DNA Result Positive (Negative); HSV 2 DNA Result Negative (Negative); Varicella Zoster DNA Result Negative (Negative)
== END 2024-03-17 21:43 | disposition home or self-care (01) ==
LOC: LBN 21:42
PROVIDERS: PCP Family Medicine; Visit Provider Physician Assistant Medical
DX: R21 Rash and other nonspecific skin eruption (principal); Z11.59 Encounter for screening for other viral diseases
CPT/HCPCS: 87529; 87798

== ENCOUNTER 2024-04-13 13:36 | Outpatient (REF) | payer MEDICARE, BC, SELFPAY ==
[2024-04-13 20:38] LABS: HGB 13.3 g/dL (13.5-17.5); MCH 29.7 pg (27.0-33.0); MCHC 32.4 % (32.0-36.0); MCV 92 fL (80-95); MPV 10.7 fL (8.0-11.0); Platelet Count 233 10^3/uL (130-400); RBC 4.48 10^6/uL (4.36-5.78); RDW-SD 43.4 fL; WBC 6.77 10^3/uL (4.4-10.8)
[2024-04-13 21:00] LABS: Hemoglobin A1C 6.4 % (<5.7)
[2024-04-13 21:03] LABS: Ferritin 143 ng/mL (26-388)
== END 2024-04-13 13:37 | disposition home or self-care (01) ==
LOC: NCHCN 13:36
PROVIDERS: PCP Family Medicine; Visit Provider Family Medicine
DX: E11.9 Type 2 diabetes mellitus without complications (principal)
CPT/HCPCS: 85027; 82728; 83036

== ENCOUNTER 2024-09-10 09:31 | Outpatient (REF) | payer MEDICARE, BC, SELFPAY ==
[2024-09-10 16:27] LABS: HCT 40.9 % (40.0-50.0); HGB 13.6 g/dL (13.5-17.5); MCH 30.2 pg (27.0-33.0); MCHC 33.3 % (32.0-36.0); MCV 91 fL (80-95); MPV 10.6 fL (8.0-11.0); Platelet Count 253 10^3/uL (130-400); RBC 4.51 10^6/uL (4.36-5.78); RDW 12.8 % (11.8-14.1); RDW-SD 42.5 fL; WBC 8.52 10^3/uL (4.4-10.8)
[2024-09-10 16:52] LABS: Ferritin 135 ng/mL (26-388)
[2024-09-10 17:03] LABS: Hemoglobin A1C 6.1 % (<5.7)
== END 2024-09-10 09:32 | disposition home or self-care (01) ==
LOC: NCHCN 09:31
PROVIDERS: PCP Family Medicine; Visit Provider Family Medicine
DX: E11.9 Type 2 diabetes mellitus without complications (principal); D64.9 Anemia, unspecified
CPT/HCPCS: 85027; 82728; 83036

== ENCOUNTER 2024-09-17 11:22 | Outpatient (REF) | payer MEDICARE, BC, SELFPAY ==
[2024-09-17 16:57] LABS: COMMENT (LAB VIEW ONLY) 191.24 mg/dL; Microalb ug/mg Crea 6.2 ug/mg Cr
== END 2024-09-17 11:23 | disposition home or self-care (01) ==
LOC: NCHCN 11:22
PROVIDERS: PCP Family Medicine; Visit Provider Family Medicine
DX: E11.9 Type 2 diabetes mellitus without complications (principal)
CPT/HCPCS: 82043; 82570

== ENCOUNTER 2025-01-11 11:44 | Outpatient (CLI) | payer MEDICARE, BC, SELFPAY ==
--- NOTE | 2025-01-11 | DI.RAD_ITS ---
Exam(s) XR CERVICAL SPINE COMP 4-5V EXAM: XR CERVICAL SPINE COMP 4-5V CLINICAL HISTORY: CERVICALGIA M54.2 ACUTE NECK PAIN. TECHNIQUE: 2D digital imaging was performed. COMPARISON: No exams were available for comparison FINDINGS: Six views No evidence of fracture, listhesis, nor prevertebral soft tissue swelling. There is multilevel disc space narrowing at C3-4, C4-5, C5-6, and C6-7 levels. Most advanced narrowing is at C5-6 level. There are small bilateral Luschka joint osteophytes at this level as well as at C6-7. Symmetrically prominent transverse processes at C7 noted. These are not true cervical ribs. There is some calcification noted in the supraspinous ligament behind the mid cervical spine. There is some multilevel mild facet arthropathy. Bone density normal. No osseous lesions Vascular calcifications noted in the carotid arteries on both sides the neck. IMPRESSION: Multilevel chronic degenerative disc disease. If clinically indicated can be further studied with MRI. Vascular calcification both sides the neck indicating atherosclerotic involvement of the carotid arteries in the neck. This can be further studied with duplex Doppler imaging. DATA REPOSITORY: RADIATION DOSE DELIVERED:
== END 2025-01-11 12:04 ==
LOC: DI 11:45
PROVIDERS: PCP Family Medicine; Visit Provider Family Medicine
DX: M54.2 Cervicalgia (principal)
CPT/HCPCS: 72050

== ENCOUNTER 2025-02-21 09:37 | Outpatient (CLI) | payer MEDICARE, BC, SELFPAY ==
[2025-02-21 09:50] LABS: HCT 39.1 % (40.0-50.0); HGB 13.0 g/dL (13.5-17.5); MCH 29.8 pg (27.0-33.0); MCHC 33.2 % (32.0-36.0); MCV 90 fL (80-95); MPV 10.1 fL (8.0-11.0); Platelet Count 228 10^3/uL (130-400); RBC 4.36 10^6/uL (4.36-5.78); RDW 12.6 % (11.8-14.1); RDW-SD 42.1 fL; WBC 6.07 10^3/uL (4.4-10.8)
[2025-02-21 10:56] LABS: Anion Gap 10.3 mmol/L (3-11); BUN 14 mg/dL (7-18); CO2 27.7 mmol/L (21.0-32.0); Calcium 9.2 mg/dL (8.5-10.1); Calculated LDL 34 mg/dL (<100); Chloride 100 mmol/L (98-107); Cholesterol 89 mg/dL (<200); Estimated GFR 90.74 (mL/min/1.73m2); Glucose 112 mg/dL (74-106); HDL Cholesterol 45 mg/dL (>or=40); Potassium 4.0 mmol/L (3.5-5.1); Sodium 138 mmol/L (136-145); Triglyceride 54 mg/dL (<150)
[2025-02-21 17:28] LABS: PSA, Screening 1.2 ng/mL (<=6.5)
== END 2025-02-21 09:38 | disposition home or self-care (01) ==
LOC: LBO 09:40
PROVIDERS: PCP Family Medicine; Visit Provider Family Medicine
DX: E78.5 Hyperlipidemia, unspecified (principal); Z12.5 Encounter for screening for malignant neoplasm of prostate; I10 Essential (primary) hypertension
CPT/HCPCS: 36415; 80048; 80061; 84153; 85027